=== PATIENT | male | born 1950 | race Caucasian/White ===

== ENCOUNTER 2024-09-28 09:06 | Emergency (ER) | payer OTHER, SELFPAY ==
[2024-09-28] VITALS (7 sets, daily range): BP systolic 121–153; BP diastolic 69–88; BMI 39.5
[2024-09-28 09:42] LABS: COVID-19 Antigen Negative (Negative)
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
[2024-09-28] MEDS: VENTOLIN NEBULES 2.5 MG INH (11:28)
[2024-09-28 11:34] LABS: % Basophils 0.6 % (0-2); % Eosinophils 1.8 % (0-6); % Immature Granulocytes 0.2 % (0-0.5); % Monocytes 5.5 % (1.7-9.3); % Neutrophils 69.9 % (42.2-75.2); Absolute Basophils 0.1 10^3/uL (0-0.2); Absolute Eosinophils 0.2 10^3/uL (0-0.7); Absolute Monocytes 0.5 10^3/uL (0.1-0.6); Absolute Neutrophils 6.2 10^3/uL (1.4-6.5); Hematocrit 49.4 % (39.0-52.0); Hemoglobin 16.2 g/dL (13.0-18.0); Mean Corp Hgb Conc. 32.8 g/dL (33.0-37.0); Mean Corpuscular Hgb 27.1 pg (27.0-31.0); Mean Corpuscular Volume 82.7 fL (80.0-94.0); Mean Platelet Volume 10.8 fL (7.4-10.4); Nucleated Red Blood Cells % 0 % (-); Platelet Count 212 10^3/uL (130-400); Red Blood Cell Count 5.97 10^6/uL (4.70-6.10); Red Cell Dist. Width 13.8 % (11.5-14.5); White Blood Cell Count 8.9 10^3/uL (4.8-10.8)
[2024-09-28 11:48] LABS: ALT (SGPT) 21 U/L (0-50); AST (SGOT) 19 U/L (17-59); Albumin 3.9 g/dl (3.5-5.0); Alkaline Phosphatase 67 U/L (38-126); Blood Urea Nitrogen 15 mg/dl (9-20); Calcium 9.1 mg/dl (8.4-10.2); Carbon Dioxide 28 mmol/L (22-30); Chloride 107 mmol/L (98-107); Estimated Creatinine Clearance 72 ml/min; Glucose 120 mg/dl (70-99); Potassium 4.6 mmol/L (3.5-5.1); Sodium 142 mmol/L (135-145); Total Bilirubin 0.9 mg/dl (0.2-1.3); Total Protein 6.9 g/dl (6.3-8.2); eGFR 58.37
[2024-09-28 11:59] LABS: NT-proBNP 128 pg/ml; Troponin I < 0.012 ng/ml
== END 2024-09-28 15:22 | disposition home or self-care (01) ==
LOC: EMR 09:06
PROVIDERS: Nurse Practitioner; EMERGENCY PHYSICIAN Emergency Medicine; FAMILY PHYSICIAN Hospitalist
DX: R06.00 Dyspnea, unspecified (principal); E78.00 Pure hypercholesterolemia, unspecified; E11.9 Type 2 diabetes mellitus without complications; G47.30 Sleep apnea, unspecified; I10 Essential (primary) hypertension; I25.10 Atherosclerotic heart disease of native coronary artery without angina pectoris
CPT/HCPCS: 99284; 94640; 71046; 71275; 80053; 83880; 84484; 85025; 87811; 93005; Q9967

== ENCOUNTER → 2024-10-21 14:05 | Outpatient (REF) | payer OTHER, SELFPAY | LOC: PAVMRI 14:05 | PROVIDERS: ATTENDING PHYSICIAN Specialist; FAMILY PHYSICIAN Hospitalist | DX: R26.81 Unsteadiness on feet (principal) | CPT/HCPCS: 70553; A9575 ==

== ENCOUNTER → 2024-10-25 12:27 | Outpatient (REF) | payer OTHER, SELFPAY | LOC: RSP 12:27 | PROVIDERS: ATTENDING PHYSICIAN Specialist; FAMILY PHYSICIAN Hospitalist | DX: R06.2 Wheezing (principal) | CPT/HCPCS: 94727; 94729; 88738; 94060 ==

== ENCOUNTER 2025-02-25 15:16 | Emergency (ER) | payer OTHER, SELFPAY ==
[2025-02-25 15:22] VITALS: BP 152/86; BMI 38.0
[2025-02-25 16:40] VITALS: BP 153/86
[2025-02-25 16:52] LABS: Hematocrit 49.3 % (39.0-52.0); Hemoglobin 16.4 g/dL (13.0-18.0); Mean Corp Hgb Conc. 33.3 g/dL (33.0-37.0); Mean Corpuscular Volume 83.3 fL (80.0-94.0); Nucleated Red Blood Cells % 0 % (-); Platelet Count 208 10^3/uL (130-400); Red Cell Dist. Width 13.9 % (11.5-14.5)
[2025-02-25 17:00] VITALS: BP 146/116
[2025-02-25 17:05] LABS: Urine Character Clear (Clear)
[2025-02-25 17:19] LABS: Troponin I < 0.012 ng/ml
[2025-02-25 17:24] LABS: Urine Red Blood Cell 0-2 /HPF (0-2); Urine White Cell 0-2 /HPF (0-5)
--- NOTE | 2025-02-25 17:43 | ED.GENMED ---
History of Present Illness
General
Chief Complaint: Abdominal Pain
Source: patient
Exam Limitations: none
Time Seen by Provider: 02/25/25 16:55
Nursing documentation reviewed up to this point in time: agreed with
History of Present Illness
History of Present Illness:
74-year-old male with a past medical history of hypertension, hyperlipidemia, diabetes, early Parkinson's, KATHARINA on CPAP, obesity who presents to the emergency department for evaluation of multiple complaints�mainly complaining of abdominal discomfort
as well as breathing issues. Regarding his abdominal pains: Patient reports that they have been ongoing for the past week or so. He reports vague intermittent diffuse abdominal discomfort. No clear triggering or relieving factors noted. He
denies any relation to meals. He reports associated constipation�last bowel movement was yesterday but he says that that was the first bowel movement he had this week and has not had a bowel movement today. He denies any nausea or vomiting.
Denies any urinary symptoms. Denies fever or chills. Regarding shortness of breath: Patient says that he has some chronic mild shortness of breath and has been seen by pulmonology as well as cardiology. He says that over the past 3 to 4 days he
has had increased shortness of breath specifically when he sleeps at night. He denies any recent cough. Denies any chest pain. Denies any swelling or pain in the legs. He denies any other acute complaints.
Review of Systems
Review of Systems
All Other Systems: ROS reviewed and negative except as documented in HPI and ROS
Constitutional: Denies fever or chills
EENT: Denies sore throat or runny nose
Respiratory: Reports trouble breathing; Denies cough
Cardiac: Denies chest pain or palpitations
ABD/GI: Reports abdominal pain and constipated; Denies nausea, vomiting or diarrhea
: Denies dysuria or flank pain
Musculoskeletal: Denies neck pain or back pain
Neurological: Denies dizzy or headache
Phy Exam
Physical Exam
Physical Exam:
General: Awake, alert, oriented x3; no acute distress
Head: Normocephalic, atraumatic
Eyes: Conjunctiva normal
Throat: Airway intact, handling secretions
Neck: Trachea midline, no JVD
Lungs: Clear to auscultation bilaterally, no wheezing, rales, rhonchi
Heart: Regular rate and rhythm, no murmurs, gallops, or rubs
Abd: Soft, non distended, mild diffuse tenderness; scars from prior hernia repair noted
Neuro: Grossly intact
Extremities: No edema in extremities, no calf tenderness, equal pulses in all extremities
Scores
Heart Failure Risk
Heart Failure Risk Score: Not Applicable
Heart Score for Chest Pain Patients
STEMI patient?: Not applicable
Withdrawal Assessment of Alcohol
Withdrawal Assessment Completed?: Not applicable
Course
Orders/Labs/Results
Orders:
Orders
02/25/25 16:37
Complete Blood Count/With Diff Urgent
NT-proBNP Urgent
Troponin I Urgent
02/25/25 16:44
Urinalysis Reflex To Culture Urgent
Date Specimen was Collected: 02/25/25
Time Specimen was Collected: 16:42
Urine Microscopic Reflex Cult Urgent
02/25/25 16:58
CT Abd/pelvis W Iv Cont Urgent
Comment:
Reason For Exam: abd pain, constipation
CR Chest - 2 Views Urgent
Comment:
Reason For Exam: sob
02/25/25 16:59
Electrocardiogram (*1) Urgent
Reason for Study: Shortness of Breath
EKG- Treatment ONCE
02/25/25 17:09
Add On- LAB Urgent
Tests Added?: pro BNP
02/25/25 17:57
Comprehensive Metabolic Panel Urgent
Abnormal Lab Results
02/25/25 02/25/25
16:37 16:44
Absolute Neuts (auto) 8.1 H 10^3/uL
(1.4-6.5)
Absolute Monos (auto) 0.9 H 10^3/uL
(0.1-0.6)
Neutrophils % 77.1 H %
(42.2-75.2)
Lymphocytes % 13.2 L %
(20.5-51.1)
Urine Bacteria (Reflex) Few A
(Negative)
Urine Glucose 4+ A
(Negative)
Urine Albumin (Reflex) 2+ A
(Neg - Trace)
02/25/25 16:37
02/25/25 17:57
Vital Signs
Initial and Last Documented VS:
Initial Vital Signs
Temp Pulse Resp
36.9 C 78 18
02/25/25 15:21 02/25/25 15:21 02/25/25 15:21
Last Documented Vital Signs
Temp Pulse Resp BP Pulse Ox
36.9 C 75 18 142/75 96
02/25/25 15:21 02/25/25 19:00 02/25/25 15:21 02/25/25 19:00 02/25/25 19:00
MDM/Problems Addressed
Differential Diagnosis Includes:
Abdominal pain: Gastritis/PUD, constipation, cholecystitis, cholelithiasis, pancreatitis, diverticulitis, anginal equivalent
Shortness of breath: Deconditioning, anemia, pneumonia, CHF, bronchitis, angina
MDM/Problems Addressed:
74-year-old male presents for evaluation of multiple complaints�mainly complaining of abdominal discomfort as well as shortness of breath. Vitals and exam as above. Will plan to place an IV check labs including a CBC and a CMP. Check troponin and
proBNP. Check an EKG. Check chest x-ray. Check CT of the abdomen pelvis as well as urinalysis. Will reassess after the above.
Labs reviewed: CBC unremarkable, CMP no clinically significant abnormalities. Troponin undetectable with symptoms for days. proBNP not elevated. Urinalysis shows few bacteria but no pyuria and multiple squamous cells suggesting contamination�not
consistent with UTI. Chest x-ray shows no acute disease. Regarding dyspnea at this point his workup has been reassuring certainly by exam he does not appear to be in congestive heart failure; his dyspnea is mostly with laying flat somewhat lower
suspicion at this is anginal/ACS. Chest x-ray shows no pneumonia or pneumothorax. Lungs sound clear which goes against diagnosis of bronchitis. I wonder if symptoms could be more from obesity hypoventilation when laying flat; he also reports he
has had some nasal congestion recently possibly that congestion/allergies contributing to some shortness of breath when lying flat. Awaiting rest of workup for abdominal discomfort.
CT abdomen showed severe atherosclerotic plaque in the coronary arteries and multiple other incidental findings but no acute abnormalities in the abdomen pelvis. He did also have plaque in his right common femoral artery causing stenosis.
Regarding his presenting complaints given this finding of significant atherosclerotic plaque on imaging today with increasing upper abdominal discomforts and dyspnea concerned that his symptoms could be anginal. Certainly he will need for further
cardiac testing to evaluate for this possibility. Certainly his clinical picture today is not consistent with an acute coronary syndrome and my clinical impression is that symptomatology is likely not related to coronary calcifications. Will
discuss case with cardiology regarding further assessment of the symptoms�his normal handicrafts teacher is Dr. Craig.
Discussed with cardiology�patient can be admitted for further observation and testing or have expeditious outpatient follow-up. In my judgment I think outpatient testing is reasonable in this patient. I had a long discussion with the patient and
his and I offered admission for further testing versus discharge with expeditious outpatient follow-up. Patient and feel comfortable with outpatient testing to follow-up on coronary calcifications. I also spoke about other incidental
findings on CT including narrowing of vessels in the right leg and provided referral to vascular surgery�fortunately he is not having any pains or issues with the right leg. My clinical impression is that symptoms are likely not cardiac in nature,
abdominal discomfort sounds like gastroesophagitis and breathing issues are clearly positional and I think are likely from obesity hypoventilation. He says that when he sits upright in the chair to sleep at night he has no symptoms of shortness of
breath at all. Will plan for discharge after shared decision making with patient and . Spoke about return precautions and follow-up plan in detail and all questions answered.
Chronic conditions affecting care:
Obesity, KATHARINA, hypertension, hyperlipidemia, diabetes
*Radiology
Radiology exam reviewed: preliminary read by ED provider and radiology read reviewed
*Pulse Oximetry
SaO2: 95
Patient hypoxic: no (95%)
*EKG
Interpreted by ED Provider?: Yes
Comparison EKG: no changes
Heart Rate: 81
Rate: normal
Rhythm: sinus
Crozier: left axis deviation
Interval: normal interval
QRS Pattern: normal QRS
Ischemia: no ischemia (No acute change from prior)
*Critical Care Note
Total Time (30-74mins, 75-104mins- exclusive of procedures): Not Applicable
Data Reviewed
Source: patient and records
Patient Management
Discussion with other providers: Stock Room Manager (Discussed with cardiology)
ED Attending Note
-
Portions of this chart may have been created with voice recognition software.� Occasional wrong word or��sound alike� substitutions may have occurred due to the inherent limitations of voice recognition software.
Discharge Plan
Departure
Patient Disposition: Home (Routine Discharge)
Date of Disposition: 02/25/25
Time of Disposition: 20:39
Patient with high blood pressure during this ER visit?: Yes
Discharge Problem:
Abdominal pain, Shortness of breath, Coronary artery calcification, Femoral artery stenosis
Instructions: Chest Pain DCA Follow Up
Prescriptions:
No Action
losartan 50 mg Tablet
50 mg PO DAILY
atorvastatin [Lipitor] 40 mg Tablet
40 mg PO DAILY
metoprolol tartrate 50 mg Tablet
50 mg PO DAILY
escitalopram oxalate [Lexapro] 10 mg Tablet
10 mg PO DAILY
Jardiance 10 mg Tablet
10 mg PO DAILY
Trelegy Ellipta 100-62.5-25 mcg Blister With Device
1 inh INHALATION DAILY
Mounjaro 5 mg/0.5 mL Pen Injector
5 mg SC QWEEK
Referrals:
[facility], [Other]
Dori Treviño MD [Family Provider, Internal Medicine]
Jasper Tim MD [Active, Vascular Surgery] - Call in 1-3 days for appt
Referral Note: Vascular surgery--follow up regarding narrowing in right leg as we discussed
Beck Craig DO [Active, Cardiology] - Call in 1-3 days for appt
Activity Restrictions/Additional Instructions:
You should follow-up with handicrafts teacher regarding incidental finding of calcifications around your heart. You should receive a call to arrange follow-up first thing Thursday�if you do not receive a call you should call to ensure good follow-up. If
you have any worsening symptoms return to the ER for reassessment. I do think that it is likely your abdominal discomfort is related to gastroesophagitis/GERD. It would be reasonable to try [id number] antacids for the next few weeks to see
if there is any improvement. You might also consider alternate sleep position to help with your breathing issues when laying flat.
Incidentally on your CT scan they were also a few findings that will require follow-up with your primary doctor and you should schedule an appointment within the next week or 2 to follow-up on these things. Most notably you had some narrowing of
the blood vessel in your right leg that should be followed up with a vascular doctor as we discussed�you should call to make an appointment at the number provided.
Thank you for visiting the Emergency Department at [facility].
1. Please schedule a follow up appointment as directed. Call first thing tomorrow morning to make an appointment.
2. If indicated, please take your medications as instructed and indicated on discharge paperwork.
3. If any of your symptoms do not improve, or persist, or become more severe within 6-12 hours, please return to the emergency department for further care.
4. Please return to the emergency department if you develop a headache, neck pain/stiffness, fever greater than 100.4F, chest pain, shortness of breath, persistent nausea, vomiting, slurred speech, difficulty walking, numbness/tingling, weakness,
signs of infection or any other symptoms that are worrisome to you.
Please call [phone] if you have any questions.
Interventions
Interventions:
*Risk Screen - Suicide Last Done: 02/25/25 16:28
*General Assessment Last Done: 02/25/25 16:28
*Neglect/Abuse Screening Last Done: 02/25/25 16:28
*ED- Fall Risk Assessment Last Done: 02/25/25 16:28
*ED COVID-19 Vaccine History Last Done: 02/25/25 16:28
EO-Ftywsv-Oatmlgtngh Assessment Last Done: 02/25/25 19:20
Discharge Date and Time
Print Language: MACEDONIAN
[2025-02-25 18:37] LABS: ALT (SGPT) 32 U/L (0-50); AST (SGOT) 18 U/L (17-59); Albumin 4.1 g/dl (3.5-5.0); Alkaline Phosphatase 64 U/L (38-126); Blood Urea Nitrogen 18 mg/dl (9-20); Calcium 9.5 mg/dl (8.4-10.2); Carbon Dioxide 26 mmol/L (22-30); Chloride 105 mmol/L (98-107); Estimated Creatinine Clearance 70 ml/min; Glucose 95 mg/dl (70-99); Potassium 4.5 mmol/L (3.5-5.1); Sodium 137 mmol/L (135-145); Total Protein 7.0 g/dl (6.3-8.2); eGFR 58.01
[2025-02-25 19:00] VITALS: BP 142/75
--- NOTE | 2025-02-25 19:14 | EDRN ---
Pt says he has had abdominal pain, constipation and sob. Symptoms started 3-4 days ago. last BM yesterday around 1300 which seemed smaller than usual and pt had to strain. No blood in stool. Abd pain intermittent in the center of his abdomen.
No n/v, fever/chills/cough, cp. Voice has been raspy for couple weeks.
[2025-02-25 20:48] VITALS: BP 150/32
== END 2025-02-25 21:00 | disposition home or self-care (01) ==
LOC: EMR 15:16
PROVIDERS: EMERGENCY PHYSICIAN Emergency Medicine; FAMILY PHYSICIAN Hospitalist
DX: R10.9 Unspecified abdominal pain (principal); R06.02 Shortness of breath; I25.10 Atherosclerotic heart disease of native coronary artery without angina pectoris; I70.201 Unspecified atherosclerosis of native arteries of extremities, right leg; E11.9 Type 2 diabetes mellitus without complications; I10 Essential (primary) hypertension; E78.5 Hyperlipidemia, unspecified; G20.A1 Parkinson's disease without dyskinesia, without mention of fluctuations; G47.33 Obstructive sleep apnea (adult) (pediatric); E66.9 Obesity, unspecified; Z68.38 Body mass index [BMI] 38.0-38.9, adult; Z79.84 Long term (current) use of oral hypoglycemic drugs; Z79.85 Long-term (current) use of injectable non-insulin antidiabetic drugs
CPT/HCPCS: 99284; 71046; 74177; 80053; 81003; 81015; 83880; 84484; 85025; 93005; Q9967

== ENCOUNTER → 2025-03-29 13:38 | Outpatient (REF) | payer OTHER, SELFPAY | LOC: RCS 13:38 | PROVIDERS: ATTENDING PHYSICIAN Internal Medicine Cardiovascular Disease; FAMILY PHYSICIAN Hospitalist | DX: R07.89 Other chest pain (principal); R06.02 Shortness of breath | CPT/HCPCS: 93306 ==

== ENCOUNTER → 2025-04-05 07:53 | Outpatient (REF) | payer OTHER, SELFPAY | LOC: RAD 07:53 | PROVIDERS: ATTENDING PHYSICIAN Surgery Vascular Surgery; FAMILY PHYSICIAN Hospitalist | DX: I73.9 Peripheral vascular disease, unspecified (principal) | CPT/HCPCS: 93922; 93925 ==